=== PATIENT | female | born 1965 | race Caucasian/White ===

== ENCOUNTER 2017-11-14 11:53 | Emergency (ER) | payer OTHER ==
[~2017-11-14] VITALS: Ht 152.4 cm; Wt 66.4 kg
[2017-11-14 12:00] VITALS: Ht 152.4 cm; Wt 66.4 kg
[2017-11-14] MEDS ORDERED: VALIUM5 MG PO (12:02)
[2017-11-14] MEDS ORDERED: OMEPRAZOLE20 M1 PO (12:03)
[2017-11-14 12:36] LABS: BASOPHILS 0.5 % (0-2); EOSINOPHILS 0.6 % (0-7); HEMATOCRIT 43.4 % (36.0-48.0); HEMOGLOBIN 15.5 g/dL (12-16); IMMATURE GRANULOCYTES 0.2 % (0-5); LYMPHOCYTES 33.4 % (15-50); MCH 32.6 pg (26.0-34.0); MCHC 35.7 g/dL (31.0-37.0); MCV 91.2 fL (80.0-100.0); MEAN PLATELET VOLUME 9.4 fL (7.4-10.4); MONOCYTES 5.4 % (2-11); NEUTROPHILS 59.9 % (40-80); PLATELET COUNT 405 10x3/uL (130-400); RBC 4.76 10x6/uL (4.00-5.40); RDW 12.9 % (11.5-14.5); WBC 11.4 10x3/uL (4.8-10.8)
[2017-11-14 12:49] LABS: APPEARANCE CLEAR (CLEAR); BACTERIA FEW /hpf (NONE SEEN); BILIRUBIN NEGATIVE (NEGATIVE); COLOR YELLOW (YELLOW); EPITHELIAL CELLS OCC /hpf (0-5); GLUCOSE NEGATIVE (NEGATIVE); KETONE NEGATIVE (NEGATIVE); NITRITE NEGATIVE (NEGATIVE); PROTEIN NEGATIVE (NEGATIVE); RED CELLS - URINE 0-5 /hpf (0-5); UROBILINOGEN NORMAL (NORMAL)
[2017-11-14 13:03] LABS: ALKALINE PHOSPHATASE 86 U/L (46-116); ALT (SGPT) 24 U/L (10-68); AMYLASE - SERUM 54 U/L (25-115); BILIRUBIN - TOTAL 0.44 mg/dL (0.2-1.3); CALC OSMOLALITY 277 mosm/kg (275-300); CHLORIDE - SERUM 104 mmol/L (98-107); CREATININE - SERUM 0.6 mg/dL (0.6-1.3); GLUCOSE 85 mg/dL (74-106); LIPASE 160 U/L (73-393); POTASSIUM - SERUM 3.7 mmol/L (3.5-5.1); PROTEIN - SERUM 8.2 g/dL (6.4-8.2); SODIUM 141 mmol/L (136-145); UREA NITROGEN 7 mg/dL (7-18); eGFR NON AFRICAN AMERICAN > 90 mL/min (90-120)
[2017-11-14] MEDS ORDERED: FLORASTOR250 MG PO (17:12)
[2017-11-14] MEDS ORDERED: ZANTAC300 MG PO (17:14)
[2017-11-14] MEDS ORDERED: LEVSIN/ANASP0.125 MG PO (17:14)
[2017-11-14 17:24] VITALS: BP 109/66
== END 2017-11-14 17:26 | disposition home or self-care (01) ==
LOC: D.ER 11:53
PROVIDERS: Family Medicine
DX: R10.9 Unspecified abdominal pain (principal); R19.7 Diarrhea, unspecified; F17.200 Nicotine dependence, unspecified, uncomplicated

== ENCOUNTER → 2018-04-28 22:02 | Outpatient (CLI) | payer OTHER ==
[2017-11-14 12:00] VITALS: BMI 28.5
[~2018-04-28 22:02] MED LIST: FLORASTOR250 MG PO; LEVSIN/ANASP0.125 MG PO; OMEPRAZOLE20 M1 PO; VALIUM5 MG PO; ZANTAC300 MG PO
== END | disposition home or self-care (01) ==
LOC: D.MAMMO 13:45
DX: Z12.31 Encounter for screening mammogram for malignant neoplasm of breast (principal)

== ENCOUNTER 2018-05-24 22:29 | Inpatient (IN) | payer OTHER ==
[~2018-05-24] VITALS: Ht 152.4 cm; Wt 65.1 kg
[2018-05-24 23:01] LABS: BASOPHILS 0.2 % (0-2); EOSINOPHILS 0.6 % (0-7); HEMATOCRIT 43.5 % (36.0-48.0); HEMOGLOBIN 15.6 g/dL (12-16); IMMATURE GRANULOCYTES 0.4 % (0-5); LYMPHOCYTES 20.1 % (15-50); MCH 32.2 pg (26.0-34.0); MCHC 35.9 g/dL (31.0-37.0); MCV 89.7 fL (80.0-100.0); MEAN PLATELET VOLUME 9.6 fL (7.4-10.4); MONOCYTES 4.1 % (2-11); NEUTROPHILS 74.6 % (40-80); PLATELET COUNT 413 10x3/uL (130-400); RBC 4.85 10x6/uL (4.00-5.40); RDW 13.3 % (11.5-14.5); WBC 16.8 10x3/uL (4.8-10.8)
[2018-05-24 23:10] LABS: APPEARANCE HAZY (CLEAR); BILIRUBIN NEGATIVE (NEGATIVE); COLOR YELLOW (YELLOW); GLUCOSE NEGATIVE (NEGATIVE); KETONE NEGATIVE (NEGATIVE); NITRITE NEGATIVE (NEGATIVE); PROTEIN NEGATIVE (NEGATIVE); SPECIFIC GRAVITY 1.005 (1.005-1.020); UROBILINOGEN NORMAL (NORMAL)
[2018-05-24 23:24] LABS: ALBUMIN 3.7 g/dL (3.4-5.0); ALKALINE PHOSPHATASE 77 U/L (46-116); ALT (SGPT) 35 U/L (10-68); BILIRUBIN - TOTAL 0.36 mg/dL (0.2-1.3); CALC OSMOLALITY 291 mosm/kg (275-300); CALCIUM 9.5 mg/dL (8.5-10.1); CARBON DIOXIDE 30.1 mmol/L (21.0-32.0); CHLORIDE - SERUM 105 mmol/L (98-107); CREATININE - SERUM 0.7 mg/dL (0.6-1.3); GLUCOSE 110 mg/dL (74-106); POTASSIUM - SERUM 3.7 mmol/L (3.5-5.1); PROTEIN - SERUM 7.9 g/dL (6.4-8.2); SODIUM 146 mmol/L (136-145); UREA NITROGEN 13 mg/dL (7-18); eGFR NON AFRICAN AMERICAN > 90 mL/min (90-120)
[2018-05-24 23:28] LABS: AMYLASE - SERUM 83 U/L (25-115); LIPASE 333 U/L (73-393)
[2018-05-24 23:30] LABS: TROPONIN-I < 0.017 ng/mL (0.000-0.060)
[2018-05-24 23:37] VITALS: BP 114/71
--- NOTE | 2018-05-24 23:40 | NUR ---
pt laying in bed. warm blankets provided. no distress noted. respirations are even and unlabored. vss. iv patent and infusing with no signs of infiltration. family member at bedside. will continue to monitor.
--- NOTE | 2018-05-25 00:47 | NUR ---
PT RETURNED FROM CT AT THIS TIME.
[2018-05-25] MEDS ORDERED: PROTONIX40 MG PO (03:57)
--- NOTE | 2018-05-25 04:56 | NUR ---
RECIEVED REPORT FROM SAVANNA IN ER. ARRIVED TO FLOOR ON STRETCHER WITH . ALERT AND ORIENTED X4. IV TO LEFT AC. NS INFUSING AT 125ML/HR. NG TUBE ON INTERMEDIATE SUCTION. PT PULLED NG TUBE OUT AND WANTS TO WAIT FOR TO COME BACK IN FROM SMOKING BEFORE REINSERTION. PT STATED SHE GOT SICK AND FELT LIKE SHE COULD'NT BREATH SO SHE PULLED IT OUT.
[2018-05-25 05:22] VITALS: BP 117/72; BMI 30.7
[2018-05-25 05:28] VITALS: BP 117/72
--- NOTE | 2018-05-25 05:30 | NUR ---
NOTIFIED DR TAM WITH NEW ORDER FOR PHENEGRAN 25MG IM X1 AND REINSERT NG TUBE WITH INTERMEDIATE SUCTION. PT AND SPOUSE AWARE.
--- NOTE | 2018-05-25 07:30 | NUR ---
ASSESSMENT COMPLETED. IV TO LEFT AC WITH NS AT 125 CC/HR. NG TUBLE TO LEFT NARE TO LOW INTERMITTEN SUCTION. UP AB SPARKLE. NPO AT PRESENT TIME. ALERT AND ORIENTED. CALL LIGHT IN REACH
--- NOTE | 2018-05-25 08:02 | NUR ---
RESTING QUIETLY DENIES ANY NEEDS OR DISCOMFORT AT THIS TIME NAD NOTED
[2018-05-25 09:31] VITALS: BP 121/66
[2018-05-25 12:49] VITALS: BP 129/59
[2018-05-25 13:42] VITALS: Ht 152.4 cm; Wt 65.1 kg
--- NOTE | 2018-05-25 16:29 | NUR ---
SCD'S ON PER FRANCESCA/SENIOR C WEB DEVELOPER
[2018-05-25 17:06] VITALS: BP 128/76
--- NOTE | 2018-05-25 19:52 | NUR ---
RESUMED CARE OF PT, LYING IN BED RESPIRATIONS EVEN AND UNLABORED ON ROOM AIR. NGT TO Gerson HINTON LIS. 90 SR ON TELEMETRY. LEFT AC INFUSING NS @ 125. PLAN OF CARE DISCUSSED. SEE NURSE ASSESSMENT.
[2018-05-25 20:00] VITALS: BP 140/80
[2018-05-26] VITALS: BP 127/73
[2018-05-26 04:57] LABS: BASOPHILS 0.1 % (0-2); HEMATOCRIT 39.2 % (36.0-48.0); HEMOGLOBIN 13.3 g/dL (12-16); IMMATURE GRANULOCYTES 0.3 % (0-5); LYMPHOCYTES 20.8 % (15-50); MCHC 33.9 g/dL (31.0-37.0); MCV 91.4 fL (80.0-100.0); MONOCYTES 10.5 % (2-11); NEUTROPHILS 67.3 % (40-80); PLATELET COUNT 380 10x3/uL (130-400); RBC 4.29 10x6/uL (4.00-5.40); RDW 13.9 % (11.5-14.5); WBC 14.7 10x3/uL (4.8-10.8)
[2018-05-26 05:16] LABS: ALBUMIN 2.9 g/dL (3.4-5.0); ALKALINE PHOSPHATASE 57 U/L (46-116); BILIRUBIN - TOTAL 0.62 mg/dL (0.2-1.3); CALCIUM 7.8 mg/dL (8.5-10.1); CHLORIDE - SERUM 105 mmol/L (98-107); GLUCOSE 84 mg/dL (74-106); MAGNESIUM - SERUM 1.7 mg/dL (1.8-2.4); POTASSIUM - SERUM 3.3 mmol/L (3.5-5.1); PROTEIN - SERUM 6.4 g/dL (6.4-8.2); SODIUM 141 mmol/L (136-145)
[2018-05-26 05:20] VITALS: BP 131/67
[2018-05-26 05:20] LABS: ALT (SGPT) 21 U/L (10-68); CALC OSMOLALITY 277 mosm/kg (275-300); CREATININE - SERUM 0.5 mg/dL (0.6-1.3); UREA NITROGEN 8 mg/dL (7-18); eGFR NON AFRICAN AMERICAN > 90 mL/min (90-120)
--- NOTE | 2018-05-26 07:29 | NUR ---
RECEIVED PT IN BED AAOX4 RESP UNLABORED NG TUBE TO LT NARE PATENT TO LOW INTERMITTENT SUCTION DILAUDID 0.5 MG GIVEN SIVP FOR C/O OF HEAD AND THROAT PAIN 10/28
--- NOTE | 2018-05-26 07:59 | NUR ---
PAIN LEVEL 2
[2018-05-26 09:17] VITALS: BP 130/79
--- NOTE | 2018-05-26 11:24 | NUR ---
CALLED OVER TO XRAY REMOVED PT'S NG TUBE PER RADIOLOGIST INSERTEDNEW NG TUBE THRU LEFT NARE PLACEMENT CHECKED BY AUSCUTATION AND FLOUROSCOPY PT TOLERATED WELL
[2018-05-26 15:46] VITALS: BP 147/89
--- NOTE | 2018-05-26 19:30 | NUR ---
FLU SWAB DONE AND TAKEN TO LAB.
[2018-05-26 20:00] VITALS: BP 135/80
--- NOTE | 2018-05-26 21:36 | NUR ---
NGT TO LEFT NARE DISCONNECTED FROM SUCTION SO PT CAN GO TO BR.
[2018-05-26 22:37] LABS: APPEARANCE CLEAR (CLEAR); BILIRUBIN NEGATIVE (NEGATIVE); COLOR YELLOW (YELLOW); GLUCOSE NEGATIVE (NEGATIVE); KETONE LARGE mg/dL (NEGATIVE); NITRITE NEGATIVE (NEGATIVE); PROTEIN NEGATIVE (NEGATIVE); UROBILINOGEN NORMAL (NORMAL)
[2018-05-26 22:39] LABS: RED CELLS - URINE 0-5 /hpf (0-5); WHITE CELLS - URINE 0-5 /hpf (0-5)
[2018-05-26 22:40] LABS: BACTERIA FEW /hpf (NONE SEEN); EPITHELIAL CELLS 0-5 /hpf (0-5)
[2018-05-27] VITALS: BP 129/74
--- NOTE | 2018-05-27 03:43 | NUR ---
PT AWAKE, WATCHING TV. FAMILY AT BEDSIDE. PT HAS NGT WITH LIS, NS INFUSING ORDERED. PT HAS NO S/S OF DISTRESS. BEDLOW AND CALL LIGHT IN REACH. PT DENIES ANY NEEDS. WILL CPOC
[2018-05-27 04:00] VITALS: BP 132/84
--- NOTE | 2018-05-27 04:33 | NUR ---
RESTING WITH EYES CLOSED, RESPERATIONS EVEN, NO S.S DISTRESS NOTED.
[2018-05-27 06:10] LABS: BASOPHILS 0.2 % (0-2); EOSINOPHILS 0.8 % (0-7); HEMATOCRIT 37.9 % (36.0-48.0); HEMOGLOBIN 13.1 g/dL (12-16); IMMATURE GRANULOCYTES 0.3 % (0-5); LYMPHOCYTES 21.1 % (15-50); MCH 31.4 pg (26.0-34.0); MCHC 34.6 g/dL (31.0-37.0); MCV 90.9 fL (80.0-100.0); MEAN PLATELET VOLUME 9.7 fL (7.4-10.4); MONOCYTES 10.7 % (2-11); NEUTROPHILS 66.9 % (40-80); PLATELET COUNT 362 10x3/uL (130-400); RBC 4.17 10x6/uL (4.00-5.40); RDW 13.5 % (11.5-14.5); WBC 14.3 10x3/uL (4.8-10.8)
[2018-05-27 06:35] LABS: ALBUMIN 2.8 g/dL (3.4-5.0); ALKALINE PHOSPHATASE 65 U/L (46-116); ALT (SGPT) 20 U/L (10-68); BILIRUBIN - TOTAL 0.62 mg/dL (0.2-1.3); CALC OSMOLALITY 274 mosm/kg (275-300); CALCIUM 7.9 mg/dL (8.5-10.1); CARBON DIOXIDE 19.7 mmol/L (21.0-32.0); CHLORIDE - SERUM 104 mmol/L (98-107); CREATININE - SERUM 0.5 mg/dL (0.6-1.3); MAGNESIUM - SERUM 1.8 mg/dL (1.8-2.4); POTASSIUM - SERUM 3.2 mmol/L (3.5-5.1); PROTEIN - SERUM 6.6 g/dL (6.4-8.2); SODIUM 139 mmol/L (136-145); UREA NITROGEN 10 mg/dL (7-18); eGFR NON AFRICAN AMERICAN > 90 mL/min (90-120)
[2018-05-27 06:40] LABS: GLUCOSE 62 mg/dL (74-106)
--- NOTE | 2018-05-27 07:10 | NUR ---
REPORT RECIEVED FROM PUMP TECHNICIAN. PATIENT LAYING IN BED ON BACK AWAKE AND ALERT. ORIENTED X 4. PATIENT DENIES ANY NEEDS OR PAIN. WILL CONTINUE WITH PLAN OF CARE. SR UP X 2 BED IN LOW POSITION AND CALL LIGHT IN REACH.
[2018-05-27 08:04] VITALS: BP 119/66
--- NOTE | 2018-05-27 09:00 | NUR ---
PATIENT ASSESSMENT COMPLETED. WILL CONTINUE WITH PLAN OF CARE.
--- NOTE | 2018-05-27 10:40 | NUR ---
ORDERS RECIEVED FOR NG TUBE REMOVAL. NG TUBE REMOVED EASILY AND PATIENT TOLERATED WELL AND STATES VERY HAPPY TP HAVE REMOVED. GAVE PATIENT WATER AND PATIENT SWALLOWED WITHOUT DIFFICULTY. WILL CONTINUE TO MONITOR.
[2018-05-27 12:31] VITALS: BP 138/87
--- NOTE | 2018-05-27 13:06 | NUR ---
PATIENT UNCHAGED. CURRENTLY RESTING QUIETLY IN BED. WILL CONTINUE TO MONITOR.
[2018-05-27 15:28] VITALS: BP 139/82
--- NOTE | 2018-05-27 19:51 | NUR ---
RESUMING PATIENT CARE. PATIENT IS ALERT AND ORIENTED. PATIENT SITTING UP IN BED. RESPIRATIONS EVEN AND UNLABORED. NO S/S OF DISTRESS. NO C/O PAIN. PATIENT DENIES NEEDS AT THIS TIME. PATIENT BOARD UPDATED. CALL LIGHT WITHIN REACH. FAMILY AT BEDSIDE. WILL CPOC
[2018-05-27 20:00] VITALS: BP 105/66
[2018-05-28] VITALS: BP 136/83
[2018-05-28 04:00] VITALS: BP 144/83
[2018-05-28 06:42] LABS: BASOPHILS 0.2 % (0-2); EOSINOPHILS 1.3 % (0-7); HEMATOCRIT 34.8 % (36.0-48.0); HEMOGLOBIN 12.5 g/dL (12-16); IMMATURE GRANULOCYTES 0.4 % (0-5); MCH 31.6 pg (26.0-34.0); MCHC 35.9 g/dL (31.0-37.0); MEAN PLATELET VOLUME 9.3 fL (7.4-10.4); NEUTROPHILS 66.1 % (40-80); PLATELET COUNT 322 10x3/uL (130-400); RBC 3.96 10x6/uL (4.00-5.40); RDW 13.1 % (11.5-14.5); WBC 16.3 10x3/uL (4.8-10.8)
[2018-05-28 06:44] LABS: MCV 87.9 fL (80.0-100.0)
[2018-05-28 07:08] LABS: ALBUMIN 2.5 g/dL (3.4-5.0); ALKALINE PHOSPHATASE 60 U/L (46-116); ALT (SGPT) 15 U/L (10-68); BILIRUBIN - TOTAL 0.82 mg/dL (0.2-1.3); CALCIUM 7.8 mg/dL (8.5-10.1); CARBON DIOXIDE 23.1 mmol/L (21.0-32.0); CHLORIDE - SERUM 106 mmol/L (98-107); CREATININE - SERUM 0.4 mg/dL (0.6-1.3); GLUCOSE 91 mg/dL (74-106); MAGNESIUM - SERUM 1.6 mg/dL (1.8-2.4); PROTEIN - SERUM 6.2 g/dL (6.4-8.2); SODIUM 141 mmol/L (136-145); eGFR NON AFRICAN AMERICAN > 90 mL/min (90-120)
--- NOTE | 2018-05-28 07:10 | NUR ---
REPORT RECEIVED FROM OIL EXTRACTOR. PATIENT IN LAYING IN BED ON RT SIDE WITH EYES CLOSED AND BREATHING EVENLY. FAMILY MEMBER SLEEPING IN BEDSIDE CHAIR. WILL CONTINUE WITH PLAN OF CARE.
[2018-05-28 07:21] LABS: CALC OSMOLALITY 277 mosm/kg (275-300); UREA NITROGEN 4 mg/dL (7-18)
[2018-05-28 07:22] LABS: POTASSIUM - SERUM 2.8 mmol/L (3.5-5.1)
[2018-05-28 09:45] VITALS: BP 113/71
[2018-05-28 11:00] VITALS: BP 114/73
--- NOTE | 2018-05-28 12:03 | NUR ---
PATIENT REFUSED SCD'S.
--- NOTE | 2018-05-28 13:00 | NUR ---
PATIENT SITTING UP IN BED WATCHING TV. ENCOURAGED PATIENT TO DEEP BREATHE, SIT ON SIDE OFF BED, WALK IN ROOM AND WALK ON UNIT. PATIENT STATES THAT SHE DOES NOT FEEL LIKE IT. DISCUSSED BENEFITS WITH PATIENT BUT TO NO AVAIL. PATIENT DENIES ANY NEEDS OR PAIN. WILL CONTINUE TO MONITOR.
[2018-05-28 15:00] VITALS: BP 98/53
--- NOTE | 2018-05-28 15:30 | NUR ---
PATIENT COMPLAINS PAIN AND BURNING AT IV SITE. IV INFILLTRATED. IV RE-SITED AT INNER RT WRIST WITH 20 G. PATIENT TOLERATED WELL. WILL CONTINUE TO MONITOR.
--- NOTE | 2018-05-28 16:39 | MORECARE ---
CASE MANAGEMENT DISCHARGE SUMMARY PATIENT: ODETTE ARANA UNIT: [id number] ADM DATE: 05/25/18 AGE: 52 : 67 SEX: F ROOM/BED: D.1366 AUTHOR: HAYES,DOC PHYSICIAN: REFERRING PHYSICIAN: ANNA TAM MD DATE OF SERVICE: 05/28/18 Discharge Plan Patient Name: ODETTE ARANA Facility: [facility]:[place] : 1965 Planned Disposition: Home Anticipated Discharge Date: 05/29/18 Discharge Date: Expected LOS: 4 Initial Reviewer: [email or web address] Initial Review Date: 05/25/2018 Generated: 05/28/18 5:38 pm Comments DCP- Discharge Planning Updated by [email or web address]: Herbert Hester on 05/28/18 3:[address] Patient Name: ODETTE ARANA Admission Status: ER Accout number: [id number] Admission Date: 05-25-2018 : 1965 Admission Diagnosis:UNSPECIFIED ABDOMINAL PAIN Attending: ANNA TAM Current LOS: 3 Anticipated DC Date: 05-29-2018 Planned Disposition: Home Primary Insurance: [facility] Discharge Planning Comments: CM MET WITH PT IN ROOM TO DISCUSS DISCHARGE PLANNING AND NEEDS. PT REPORTS LIVING AT HOME INDEPENDENTLY WITH SPOUSE. PT HAS NO MEDICAL EQUIPMENT AND NO OUTSIDE SERVICES ASSISTING IN THE HOME. CM DISCUSSED AVAILABILITY OF HOME HEALTH, REHAB SERVICES AND MEDICAL EQUIPMENT. PT DENIES DISCHARGE NEEDS, REPORTS HER SPOUSE WILL PICK HER UP FOR DISCHARGE HOME. PT PLANS TO DISCHARGE HOME WITH SPOUSE, DENIES DISCHARGE NEEDS AT THIS TIME. CM TO FOLLOW AND ASSIST IF NEEDED. Iron Miner: Herbert Hester DCPIA - Discharge Planning Initial Assessment Updated by [email or web address]: Herbert Hester on 05/28/18 4:36 pm * Is the patient Alert and Oriented? Yes * How many steps to enter\exit or inside your home? NONE * PCP DR. TANNER * Pharmacy [facility] * Preadmission Environment Home with Family * ADLs Independent * Equipment None * Other Equipment NO MEDICAL EQUIPMENT PROVIDER PREFERENCE * List name and contact numbers for known caregivers / representatives who currently or will assist patient after discharge: PAMELA ARANA, SPOUSE, * Verbal permission to speak to the caregivers and representatives has been obtained from the patient. N/A * Community resources currently utilized None * Please name any agencies selected above. NONE * Additional services required to return to the preadmission environment? No * Can the patient safely return to the preadmission environment? Yes * Has this patient been hospitalized within the prior 30 days at any hospital? No Patient Name: ODETTE ARANA Page [phone] at 1639 All edits/amendments must be made on the electronic document DICTATION DATE: 05/28/181637 INTERNET MERCHANT: NAMAN 05/28/188 RPT#: [id number] DC DATE: STATUS: ADM IN [facility] [address] [place] [address] END OF REPORT
[2018-05-28 20:00] VITALS: BP 127/75
--- NOTE | 2018-05-28 20:00 | NUR ---
INITIAL ASSESSMENT COMPLETED - PT C/O BURNING SENSATION AT IV SITE. IV IN R WRIST. C/D/I. DEMONSTRATED TO PT IV BLOOD RETURN AND PATENCY. REDUCED NS FLOW RATE TO 85 ML/HR PER PT REQUEST. PT STATES IT FEELS BETTER AND IS "MORE COMFORTABLE NOW THAT I KNOW IT'S IN THE RIGHT PLACE AND YOU'VE SHOWN ME." WCTM AND FOLLOW POC. RR EVEN AND UL. CL IN REACH, SR UP X2, BED IN LOWEST POSITION, SPOUSE AT BEDSIDE.
[2018-05-29] VITALS: BP 116/76
[2018-05-29 04:00] VITALS: BP 136/71
--- NOTE | 2018-05-29 04:00 | NUR ---
TO PT ROOM VIA CALL LIGHT - REQUEST FOR MORE TYLENOL, PAIN 5/10. ADMINISTERED TYLENOL. NO OTHER NEEDS NOTED AT THIS TIME. RR EVEN AND UL, NO S/S OF DISTRESS. CL IN REACH, SR UP X2, AT BEDSIDE.
[2018-05-29 06:16] LABS: BASOPHILS 0.4 % (0-2); EOSINOPHILS 3.6 % (0-7); HEMOGLOBIN 11.9 g/dL (12-16); IMMATURE GRANULOCYTES 0.2 % (0-5); LYMPHOCYTES 35.2 % (15-50); MCH 31.2 pg (26.0-34.0); MEAN PLATELET VOLUME 10.1 fL (7.4-10.4); MONOCYTES 8.9 % (2-11); NEUTROPHILS 51.7 % (40-80); PLATELET COUNT 347 10x3/uL (130-400); RBC 3.82 10x6/uL (4.00-5.40); RDW 13.3 % (11.5-14.5)
[2018-05-29 06:20] LABS: WBC 9.8 10x3/uL (4.8-10.8)
[2018-05-29 06:34] LABS: ALBUMIN 2.5 g/dL (3.4-5.0); ALKALINE PHOSPHATASE 58 U/L (46-116); ALT (SGPT) 17 U/L (10-68); BILIRUBIN - TOTAL 0.67 mg/dL (0.2-1.3); CALC OSMOLALITY 286 mosm/kg (275-300); CALCIUM 8.1 mg/dL (8.5-10.1); CARBON DIOXIDE 26.2 mmol/L (21.0-32.0); CHLORIDE - SERUM 109 mmol/L (98-107); CREATININE - SERUM 0.5 mg/dL (0.6-1.3); GLUCOSE 85 mg/dL (74-106); MAGNESIUM - SERUM 1.8 mg/dL (1.8-2.4); PROTEIN - SERUM 6.3 g/dL (6.4-8.2); SODIUM 146 mmol/L (136-145); UREA NITROGEN 3 mg/dL (7-18); eGFR NON AFRICAN AMERICAN > 90 mL/min (90-120)
--- NOTE | 2018-05-29 07:37 | NUR ---
REPORT RECEIVED. WILL CONTINUE WITH POC. PT CURRENTLY LYING SEMI FOWLERS. CALL LIGHT W/I REACH. PT IS AAO AND UP AD SPARKLE. RR EVEN AND UNLABORED ON RA.NS INFUSING @95ML/HR VIA R.WRIST PIV. PT DENIES ANY NEEDS AT THIS TIME. WILL CTM.
[2018-05-29 08:15] VITALS: BP 145/89
--- NOTE | 2018-05-29 09:18 | NUR ---
RESTS IN BED WITH CALL LIGHT IN REACH. IV PATENT. WILL CONT. PLAN OF CARE.
--- NOTE | 2018-05-29 09:58 | NUR ---
AM MEDICATIONS ADMINISTERED. 40MEQ POTASSIUM ADMINISTERED PER PROTOCOL AND REDRAW ORDERED FOR 1230
[2018-05-29 11:41] VITALS: BP 124/84
--- NOTE | 2018-05-29 12:09 | NUR ---
PT STATES THAT THE AZITHROMYCIN ANTIBIOTIC IS HURTING HER ARM WHILE INFUSING. STOPPED INFUSION. FLUSHED WITH 10CC TO CONFIRM PATENCY AND IT WAS INTFACT PATENT. NO S/S/ OF INFILTRATION OR PHLEBITIS. RESTARTED THE INFUSION @100ML/HR. WILL CTM.
--- NOTE | 2018-05-29 12:33 | NUR ---
Nutrition Follow Up: Chart reviewed. Pt is tolerating full liquid diet. Wt stable BM: 05/26/18 Meds and labs reviewed Rec continue advancing AVELINO as medically feasible. RD following.
[2018-05-29 20:00] VITALS: BP 99/56
[2018-05-30 00:27] VITALS: BP 104/54
[2018-05-30 05:02] VITALS: BP 131/78
[2018-05-30 05:25] LABS: BASOPHILS 0.6 % (0-2); EOSINOPHILS 4.6 % (0-7); HEMATOCRIT 33.1 % (36.0-48.0); HEMOGLOBIN 11.9 g/dL (12-16); IMMATURE GRANULOCYTES 0.1 % (0-5); LYMPHOCYTES 45.9 % (15-50); MCH 31.9 pg (26.0-34.0); MCV 88.7 fL (80.0-100.0); MEAN PLATELET VOLUME 9.3 fL (7.4-10.4); MONOCYTES 8.2 % (2-11); NEUTROPHILS 40.6 % (40-80); PLATELET COUNT 355 10x3/uL (130-400); RBC 3.73 10x6/uL (4.00-5.40); RDW 13.4 % (11.5-14.5); WBC 8.8 10x3/uL (4.8-10.8)
[2018-05-30 05:38] LABS: ALBUMIN 2.5 g/dL (3.4-5.0); ALKALINE PHOSPHATASE 60 U/L (46-116); BILIRUBIN - TOTAL 0.32 mg/dL (0.2-1.3); CALCIUM 8.4 mg/dL (8.5-10.1); CARBON DIOXIDE 27.4 mmol/L (21.0-32.0); CHLORIDE - SERUM 109 mmol/L (98-107); CREATININE - SERUM 0.4 mg/dL (0.6-1.3); GLUCOSE 94 mg/dL (74-106); MAGNESIUM - SERUM 1.7 mg/dL (1.8-2.4); POTASSIUM - SERUM 3.6 mmol/L (3.5-5.1); PROTEIN - SERUM 6.1 g/dL (6.4-8.2); SODIUM 146 mmol/L (136-145); eGFR NON AFRICAN AMERICAN > 90 mL/min (90-120)
[2018-05-30 05:39] LABS: ALT (SGPT) 34 U/L (10-68); CALC OSMOLALITY 287 mosm/kg (275-300); UREA NITROGEN 5 mg/dL (7-18)
--- NOTE | 2018-05-30 13:34 | NUR ---
RESTING QUIETLY NAD NOTED
[2018-05-30] MEDS ORDERED: FLORAJEN3 CAPS460 MG PO (14:20)
[2018-05-30] MEDS ORDERED: Nicoderm [PBKC] TRANSDERM (14:21)
[2018-05-30] MEDS ORDERED: OMNICEF300 MG PO (14:21)
[2018-05-30] MEDS ORDERED: ZOFRAN ODT4 MG/UDTAB PO (14:22)
--- NOTE | 2018-05-30 16:40 | NUR ---
SPOKE WITH ALEX THE PHARMACIST AT [facility] AND CALLED IN NICODER 14MG PATCH, #14 WITH NO REFILLS.
--- NOTE | 2018-05-30 17:40 | NUR ---
PT DISCHARGED. IV DCD WITH TIP INTACT. INSTRUCTIONS GIVEN TO PT AND FAMILY. TO CAR PER WHEELCHAIR.
--- NOTE | 2018-06-01 10:37 | MORECARE ---
CASE MANAGEMENT DISCHARGE SUMMARY PATIENT: ODETTE ARANA UNIT: [id number] ADM DATE: 05/25/18 AGE: 52 : 67 SEX: F ROOM/BED: D.9356 AUTHOR: HAYES,DOC PHYSICIAN: REFERRING PHYSICIAN: ANNA TAM MD DATE OF SERVICE: 06/01/18 Discharge Plan Patient Name: ODETTE ARANA Facility: [facility]:[place] : 1965 Planned Disposition: Home Anticipated Discharge Date: 05/30/18 Discharge Date: 05/30/2018 Expected LOS: 5 Initial Reviewer: [email or web address] Initial Review Date: 05/25/2018 Generated: 06/01/18 11:36 am Comments DCP- Discharge Planning Updated by [email or web address]: Herbert Hester on 05/28/18 3:[address] Patient Name: ODETTE ARANA Admission Status: ER Accout number: [id number] Admission Date: 05-25-2018 : 1965 Admission Diagnosis:UNSPECIFIED ABDOMINAL PAIN Attending: ANNA TAM Current LOS: 3 Anticipated DC Date: 05-29-2018 Planned Disposition: Home Primary Insurance: [facility] Discharge Planning Comments: CM MET WITH PT IN ROOM TO DISCUSS DISCHARGE PLANNING AND NEEDS. PT REPORTS LIVING AT HOME INDEPENDENTLY WITH SPOUSE. PT HAS NO MEDICAL EQUIPMENT AND NO OUTSIDE SERVICES ASSISTING IN THE HOME. CM DISCUSSED AVAILABILITY OF HOME HEALTH, REHAB SERVICES AND MEDICAL EQUIPMENT. PT DENIES DISCHARGE NEEDS, REPORTS HER SPOUSE WILL PICK HER UP FOR DISCHARGE HOME. PT PLANS TO DISCHARGE HOME WITH SPOUSE, DENIES DISCHARGE NEEDS AT THIS TIME. CM TO FOLLOW AND ASSIST IF NEEDED. Cushion Builder: Herbert Hester DCPIA - Discharge Planning Initial Assessment Updated by [email or web address]: Herbert Hester on 05/28/18 4:36 pm * Is the patient Alert and Oriented? Yes * How many steps to enter\exit or inside your home? NONE * PCP DR. TANNER * Pharmacy [facility] * Preadmission Environment Home with Family * ADLs Independent * Equipment None * Other Equipment NO MEDICAL EQUIPMENT PROVIDER PREFERENCE * List name and contact numbers for known caregivers / representatives who currently or will assist patient after discharge: PAMELA ARANA, SPOUSE, * Verbal permission to speak to the caregivers and representatives has been obtained from the patient. N/A * Community resources currently utilized None * Please name any agencies selected above. NONE * Additional services required to return to the preadmission environment? No * Can the patient safely return to the preadmission environment? Yes * Has this patient been hospitalized within the prior 30 days at any hospital? No Last DP export: 05/28/18 3:38 pm Patient Name: ODETTE ARANA Page [id number] at 1037 All edits/amendments must be made on the electronic document DICTATION DATE: 06/01/18 1036 OFFICE SERVICES CLERK: NAMAN 06/01/18 1036 RPT#: [id number] DC DATE:05/30/18 STATUS: DIS IN [facility] [address] [place] [address] END OF REPORT
== END 2018-05-30 17:42 | disposition home or self-care (01) | DRG 388 ==
LOC: D.ER 22:29 → D.M2 05-25 01:28 → D.EDHOLD 05-25 01:28 → D.M2 05-25 01:59
PROVIDERS: Family Medicine; ADMIT Internal Medicine Nephrology
PROC: 0D9670Z Drainage of Stomach with Drainage Device, Via Natural or Artificial Opening (ICD-10-PCS; principal; 2018-05-25)
DX: K56.609 Unspecified intestinal obstruction, unspecified as to partial versus complete obstruction (principal); J18.9 Pneumonia, unspecified organism; F17.213 Nicotine dependence, cigarettes, with withdrawal; F41.9 Anxiety disorder, unspecified; K21.9 Gastro-esophageal reflux disease without esophagitis

== ENCOUNTER → 2018-07-09 16:33 | Outpatient (CLI) | payer OTHER ==
[2018-05-25 13:42] VITALS: BMI 30.6
[~2018-07-09 16:33] MED LIST changes: +FLORAJEN3 CAPS460 MG PO; +Nicoderm [PBKC] TRANSDERM; +OMNICEF300 MG PO; +PROTONIX40 MG PO; +ZOFRAN ODT4 MG/UDTAB PO
== END | disposition home or self-care (01) ==
LOC: D.MAMMO 06-23 13:00
PROVIDERS: ATTEND Family Medicine
DX: R92.8 Other abnormal and inconclusive findings on diagnostic imaging of breast (principal)

== ENCOUNTER 2018-11-29 10:32 | Emergency (ER) | payer OTHER ==
[~2018-11-29] VITALS: Ht 152.4 cm; Wt 71.4 kg
[2018-11-29 10:34] VITALS: Ht 152.4 cm; Wt 71.4 kg
[2018-11-29] MEDS ORDERED: ZANTAC300 MG PO (10:36)
[2018-11-29] MEDS ORDERED: MYLANTA / MAALO30 ML PO (10:36)
[2018-11-29] MEDS ORDERED: OMEPRAZOLE40 MG PO (10:36)
[2018-11-29 11:09] LABS: BASOPHILS 0.3 % (0-2); EOSINOPHILS 0 % (0-7); HEMATOCRIT 39.2 % (36.0-48.0); HEMOGLOBIN 14.2 g/dL (12-16); IMMATURE GRANULOCYTES 0.3 % (0-5); MCH 31.7 pg (26.0-34.0); MCHC 36.2 g/dL (31.0-37.0); MCV 87.5 fL (80.0-100.0); MEAN PLATELET VOLUME 9.4 fL (7.4-10.4); MONOCYTES 5.4 % (2-11); PLATELET COUNT 397 10x3/uL (130-400); RBC 4.48 10x6/uL (4.00-5.40); RDW 13.2 % (11.5-14.5); WBC 9.5 10x3/uL (4.8-10.8)
[2018-11-29 11:24] LABS: ALBUMIN 3.6 g/dL (3.4-5.0); ALKALINE PHOSPHATASE 92 U/L (46-116); ALT (SGPT) 29 U/L (10-68); BILIRUBIN - TOTAL 0.34 mg/dL (0.2-1.3); CALC OSMOLALITY 277 mosm/kg (275-300); CALCIUM 8.9 mg/dL (8.5-10.1); CARBON DIOXIDE 27.1 mmol/L (21.0-32.0); CHLORIDE - SERUM 105 mmol/L (98-107); CREATININE - SERUM 0.6 mg/dL (0.6-1.3); GLUCOSE 94 mg/dL (74-106); POTASSIUM - SERUM 3.4 mmol/L (3.5-5.1); PROTEIN - SERUM 7.3 g/dL (6.4-8.2); SODIUM 140 mmol/L (136-145); UREA NITROGEN 9 mg/dL (7-18); eGFR NON AFRICAN AMERICAN > 90 mL/min (90-120)
[2018-11-29] MEDS ORDERED: LEVOFLOXACIN500 MG PO (12:37)
[2018-11-29] MEDS ORDERED: HYDROCODONE-A1 UDTA2 PO (12:37)
[2018-11-29 13:07] VITALS: BP 119/84
== END 2018-11-29 13:09 | disposition home or self-care (01) ==
LOC: D.ER 10:32
PROVIDERS: Emergency Medicine
DX: R10.11 Right upper quadrant pain (principal); K52.9 Noninfective gastroenteritis and colitis, unspecified; E87.6 Hypokalemia

== ENCOUNTER 2019-02-25 07:13 | Emergency (ER) | payer OTHER ==
[~2019-02-25] VITALS: Ht 152.4 cm; Wt 71.4 kg
[~2019-02-25 07:13] MED LIST changes: +HYDROCODONE-A1 UDTA2 PO; +LEVOFLOXACIN500 MG PO; +MYLANTA / MAALO30 ML PO; +OMEPRAZOLE40 MG PO
[2019-02-25 07:17] VITALS: Ht 152.4 cm; Wt 71.4 kg
[2019-02-25] MEDS ORDERED: FLUTICASONE PRO16 GM NASAL (07:23)
[2019-02-25] MEDS ORDERED: AMOXIL250 M1 PO (07:24)
[2019-02-25] MEDS ORDERED: CLARITIN 10 MG10 MG PO (07:24)
[2019-02-25] MEDS ORDERED: PEPCID AC20 MG PO (07:24)
[2019-02-25] MEDS ORDERED: ANTIVERT12.5 MG PO (08:05)
[2019-02-25] MEDS ORDERED: CORTISPORIN OTI10 M1 LEFT EAR (08:05)
[2019-02-25 08:18] VITALS: BP 131/88
== END 2019-02-25 08:18 | disposition home or self-care (01) ==
LOC: D.ER 07:13
DX: H93.13 Tinnitus, bilateral (principal); H92.03 Otalgia, bilateral

== ENCOUNTER 2019-12-15 18:18 | Emergency (ER) | payer OTHER ==
[~2019-12-15] VITALS: Ht 152.4 cm; Wt 73.6 kg
[~2019-12-15 18:18] MED LIST changes: +AMOXIL250 M1 PO; +ANTIVERT12.5 MG PO; +CLARITIN 10 MG10 MG PO; +CORTISPORIN OTI10 M1 LEFT EAR; +FLUTICASONE PRO16 GM NASAL; +PEPCID AC20 MG PO
[2019-12-15 18:22] VITALS: Ht 152.4 cm; Wt 73.6 kg
[2019-12-15 19:47] LABS: BASOPHILS 0.3 % (0-2); EOSINOPHILS 0.4 % (0-7); HEMATOCRIT 40.8 % (36.0-48.0); HEMOGLOBIN 13.9 g/dL (12-16); IMMATURE GRANULOCYTES 0.1 % (0-5); LYMPHOCYTES 50.8 % (15-50); MCH 30.7 pg (26.0-34.0); MCHC 34.1 g/dL (31.0-37.0); MCV 90.1 fL (80.0-100.0); MEAN PLATELET VOLUME 9.6 fL (7.4-10.4); MONOCYTES 8.8 % (2-11); NEUTROPHILS 39.6 % (40-80); PLATELET COUNT 434 10x3/uL (130-400); RBC 4.53 10x6/uL (4.00-5.40); RDW 13.7 % (11.5-14.5); WBC 6.8 10x3/uL (4.8-10.8)
[2019-12-15 19:56] LABS: BILIRUBIN NEGATIVE (NEGATIVE); KETONE NEGATIVE (NEGATIVE); NITRITE NEGATIVE (NEGATIVE); RED CELLS - URINE 0-5 /hpf (0-5); UROBILINOGEN NORMAL (NORMAL); WHITE CELLS - URINE OCC /hpf (NEGATIVE)
[2019-12-15 19:57] LABS: EPITHELIAL CELLS 0-5 /hpf (0-5)
[2019-12-15 20:01] LABS: CALC OSMOLALITY 278 mosm/kg (275-300); CALCIUM 8.8 mg/dL (8.5-10.1); CARBON DIOXIDE 31.2 mmol/L (21.0-32.0); CHLORIDE - SERUM 103 mmol/L (98-107); CREATININE - SERUM 0.9 mg/dL (0.6-1.3); GLUCOSE 104 mg/dL (74-106); POTASSIUM - SERUM 3.8 mmol/L (3.5-5.1); SODIUM 139 mmol/L (136-145); UREA NITROGEN 16 mg/dL (7-18); eGFR NON AFRICAN AMERICAN 69 mL/min (90-120)
[2019-12-15 20:11] LABS: ALBUMIN 3.5 g/dL (3.4-5.0); ALKALINE PHOSPHATASE 98 U/L (30-120); ALT (SGPT) 50 U/L (10-68); AMYLASE - SERUM 65 U/L (25-115); BILIRUBIN - TOTAL 0.28 mg/dL (0.2-1.3); LIPASE 181 U/L (73-393); PROTEIN - SERUM 7.5 g/dL (6.4-8.2)
[2019-12-15 20:22] LABS: TROPONIN-I < 0.017 ng/mL (0.000-0.060)
[2019-12-15] MEDS ORDERED: ULTRAM50 MG PO (21:29)
[2019-12-15 22:03] VITALS: BP 113/73
== END 2019-12-15 22:04 | disposition home or self-care (01) ==
LOC: D.ER 18:18
DX: K44.9 Diaphragmatic hernia without obstruction or gangrene (principal); R10.9 Unspecified abdominal pain; K21.9 Gastro-esophageal reflux disease without esophagitis

== ENCOUNTER → 2020-01-20 08:19 | Outpatient (CLI) | payer OTHER ==
[2019-12-15 18:22] VITALS: BMI 31.7
[~2020-01-20 08:19] MED LIST changes: +ULTRAM50 MG PO
[2020-01-20 08:56] LABS: BASOPHILS 0.3 % (0-2); EOSINOPHILS 0.8 % (0-7); HEMATOCRIT 38.9 % (36.0-48.0); HEMOGLOBIN 13.3 g/dL (12-16); IMMATURE GRANULOCYTES 0.1 % (0-5); LYMPHOCYTES 36.1 % (15-50); MCH 30.8 pg (26.0-34.0); MCHC 34.2 g/dL (31.0-37.0); MEAN PLATELET VOLUME 9.3 fL (7.4-10.4); MONOCYTES 5.7 % (2-11); PLATELET COUNT 435 10x3/uL (130-400); RBC 4.32 10x6/uL (4.00-5.40); RDW 13.6 % (11.5-14.5); WBC 8.9 10x3/uL (4.8-10.8)
[2020-01-20 09:08] LABS: ALBUMIN 3.7 g/dL (3.4-5.0); ALKALINE PHOSPHATASE 105 U/L (30-120); ALT (SGPT) 29 U/L (10-68); BILIRUBIN - TOTAL 0.38 mg/dL (0.2-1.3); CALC OSMOLALITY 276 mosm/kg (275-300); CALCIUM 8.8 mg/dL (8.5-10.1); CARBON DIOXIDE 30.6 mmol/L (21.0-32.0); CHLORIDE - SERUM 103 mmol/L (98-107); CREATININE - SERUM 0.7 mg/dL (0.6-1.3); GLUCOSE 90 mg/dL (74-106); LIPASE 144 U/L (73-393); POTASSIUM - SERUM 3.6 mmol/L (3.5-5.1); PROTEIN - SERUM 7.8 g/dL (6.4-8.2); SODIUM 139 mmol/L (136-145); UREA NITROGEN 11 mg/dL (7-18); eGFR NON AFRICAN AMERICAN > 90 mL/min (90-120)
== END | disposition home or self-care (01) ==
LOC: D.US 08:19
PROVIDERS: ATTEND Nurse Practitioner
DX: R10.9 Unspecified abdominal pain (principal); R11.2 Nausea with vomiting, unspecified

== ENCOUNTER 2020-01-20 17:13 | Emergency (ER) | payer OTHER ==
[~2020-01-20] VITALS: Ht 152.4 cm; Wt 72.7 kg
[2020-01-20 17:37] VITALS: BP 109/71; Ht 152.4 cm; Wt 72.7 kg
[2020-01-20 18:28] LABS: BASOPHILS 0.4 % (0-2); EOSINOPHILS 1.8 % (0-7); HEMATOCRIT 39.2 % (36.0-48.0); HEMOGLOBIN 13.2 g/dL (12-16); IMMATURE GRANULOCYTES 0.2 % (0-5); LYMPHOCYTES 47.4 % (15-50); MCH 30.4 pg (26.0-34.0); MCHC 33.7 g/dL (31.0-37.0); MCV 90.3 fL (80.0-100.0); MEAN PLATELET VOLUME 9.3 fL (7.4-10.4); MONOCYTES 5.9 % (2-11); NEUTROPHILS 44.3 % (40-80); PLATELET COUNT 414 10x3/uL (130-400); RBC 4.34 10x6/uL (4.00-5.40); RDW 13.6 % (11.5-14.5); WBC 10.5 10x3/uL (4.8-10.8)
[2020-01-20 18:38] LABS: CALC OSMOLALITY 272 mosm/kg (275-300); CALCIUM 8.5 mg/dL (8.5-10.1); CARBON DIOXIDE 28.6 mmol/L (21.0-32.0); CHLORIDE - SERUM 103 mmol/L (98-107); CREATININE - SERUM 0.7 mg/dL (0.6-1.3); GLUCOSE 107 mg/dL (74-106); POTASSIUM - SERUM 3.4 mmol/L (3.5-5.1); SODIUM 137 mmol/L (136-145); UREA NITROGEN 11 mg/dL (7-18); eGFR NON AFRICAN AMERICAN > 90 mL/min (90-120)
[2020-01-20 18:45] LABS: ALBUMIN 3.6 g/dL (3.4-5.0); ALKALINE PHOSPHATASE 105 U/L (30-120); ALT (SGPT) 29 U/L (10-68); AMYLASE - SERUM 65 U/L (25-115); BILIRUBIN NEGATIVE (NEGATIVE); KETONE NEGATIVE (NEGATIVE); LIPASE 179 U/L (73-393); NITRITE NEGATIVE (NEGATIVE); PROTEIN - SERUM 7.4 g/dL (6.4-8.2); UROBILINOGEN NORMAL mg/dL (< 2)
[2020-01-20 18:46] LABS: BACTERIA FEW HPF (NONE SEEN); EPITHELIAL CELLS NSEEN /hpf (0-5); WHITE CELLS - URINE NSEEN HPF (0-4)
[2020-01-20 18:48] LABS: TROPONIN-I < 0.017 ng/mL (0.000-0.060)
== END 2020-01-20 19:28 | disposition home or self-care (01) ==
LOC: D.ER 17:13
PROVIDERS: Family Medicine
DX: R10.11 Right upper quadrant pain (principal); K21.9 Gastro-esophageal reflux disease without esophagitis

== ENCOUNTER 2020-01-27 05:59 | Outpatient (CLI) | payer OTHER ==
[~2020-01-27] VITALS: Ht 154.9 cm; Wt 75.0 kg
[2020-01-27 06:17] LABS: HEMATOCRIT 38.7 % (36.0-48.0); HEMOGLOBIN 13.1 g/dL (12-16); MCH 30.8 pg (26.0-34.0); MCHC 33.9 g/dL (31.0-37.0); MCV 90.8 fL (80.0-100.0); MEAN PLATELET VOLUME 9.1 fL (7.4-10.4); RBC 4.26 10x6/uL (4.00-5.40); RDW 13.8 % (11.5-14.5); WBC 7.6 10x3/uL (4.8-10.8)
[2020-01-27 07:27] VITALS: Ht 154.9 cm; Wt 75.0 kg
--- NOTE | 2020-01-27 08:56 | NUR ---
[id number] BEDSICE ESOPHAGEAL MANOMETRY TEST @ THIS TIME
--- NOTE | 2020-01-27 11:17 | NUR ---
IV D/C'D WITH CANNULA INTACT, PRESSURE HELD AND DRSG PLACED. DISCHARGE INSTRUCTIONS GIVEN AND PT VERBALIZE AN UNDERSTANDING. DISCHARGED IN STABLE CONDITION AND WITHOUT COMPLAINT
--- NOTE | 2020-01-27 13:46 | OP ---
PATIENT NAME: ODETTE ARANA MEDICAL RECORD: [id number] :[birth year] LOCATION:D.OPS ADMISSION DATE: SURGEON: JAZMIN PATE MD DATE OF OPERATION: 01/27/2020 PREOPERATIVE DIAGNOSES: 1. Gastroesophageal reflux disease. 2. Hiatal hernia. 3. Right upper quadrant abdominal pain. POSTOPERATIVE DIAGNOSES: 1. Gastroesophageal reflux disease. 2. Hiatal hernia. 3. Right upper quadrant abdominal pain. PROCEDURE: EGD with biopsy and placement of a manometry catheter. SURGEON: Jazmin Pate MD REPORT OF PROCEDURE: An Olympus endoscope was advanced through the mouth and esophagus. There was a little tortuosity to the distal esophagus, but this we passed through the GE junction. We entered the hiatal hernia. We were able to pass through the hiatal hernia and out through the pylorus into the duodenum. There was some mild inflammation to the duodenum, but no signs of any ulcerations or masses. As we pulled back, we could see some mild gastritis present in the distal stomach near the pylorus. A random biopsy was performed of this tissue. A retroflexed view showed that the patient did have a hiatal hernia. As we measured this out, it was approximately 4 cm in length. The tissue in the hiatal hernia appeared to be normal with no signs of any ulcerations. There were no ulcerations or lesions noted throughout the stomach. The hiatal hernia started at 38 cm from the teeth, and the GE junction rested at about 34 cm from the teeth. The distal esophagus had no signs of any inflammatory changes or ulcerations. A random biopsy was performed from the GE junction. At this point, the insufflation was removed and the scope was slowly taken out with observation of the esophagus. A manometry catheter was then inserted into the right naris. After this was inserted, we replaced the gastrostomy tube and can see that the manometry catheter was passed the hiatal hernia in the body of the stomach. COMPLICATIONS: None. CONDITION: Stable. ANESTHESIA: TIVA. BLOOD LOSS: Minimal. TRANSINT:[id number] Voice Confirmation ID: [id number] DOCUMENT ID: [id number] OPERATIVE REPORT [id number] ODETTE ARANA JAZMIN PATE MD at 1346 CC: DAMARIS TANNER DO [id number] DICTATION DATE: 01/27/20817 SEO EXECUTIVE: 01/27/20 0939 DEP CLI 01/27/20 [id number] [place] [address]
== END 2020-01-27 09:25 ==
LOC: D.OPS 05:59
PROVIDERS: Anesthesiology; ATTEND Surgery
DX: K21.9 Gastro-esophageal reflux disease without esophagitis (principal); K44.9 Diaphragmatic hernia without obstruction or gangrene; R19.7 Diarrhea, unspecified; R10.9 Unspecified abdominal pain; R11.2 Nausea with vomiting, unspecified; I25.10 Atherosclerotic heart disease of native coronary artery without angina pectoris

== ENCOUNTER → 2020-02-07 07:28 | Outpatient (CLI) | payer OTHER ==
[2020-01-27 07:27] VITALS: BMI 31.2
== END | disposition home or self-care (01) ==
LOC: D.NM 07:28
PROVIDERS: ATTEND Surgery
DX: R10.9 Unspecified abdominal pain (principal)

== ENCOUNTER 2020-06-18 07:58 | Emergency (ER) | payer OTHER ==
[~2020-06-18] VITALS: Ht 154.9 cm; Wt 72.7 kg
[~2020-06-18 07:58] MED LIST changes: +ACETAMINOPHEN500 M1 PO; +BENTYL 20 MG TA20 MG PO; +HYDROCODON-ACE1 EA10 PO
[2020-06-18 08:02] VITALS: Ht 154.9 cm; Wt 72.7 kg
[2020-06-18 08:28] LABS: BASOPHILS 0.4 % (0-2); EOSINOPHILS 0.7 % (0-7); HEMATOCRIT 40.8 % (36.0-48.0); IMMATURE GRANULOCYTES 0.1 % (0-5); LYMPHOCYTE ABS# 2.54 10x3/uL (1.18-3.74); LYMPHOCYTES 29.8 % (15-50); MCH 30.7 pg (26.0-34.0); MCHC 34.3 g/dL (31.0-37.0); MCV 89.5 fL (80.0-100.0); MEAN PLATELET VOLUME 9.4 fL (7.4-10.4); MONOCYTES 5.2 % (2-11); NEUTROPHIL ABS# 5.43 10x3/uL (1.56-6.13); NEUTROPHILS 63.8 % (40-80); PLATELET COUNT 412 10x3/uL (130-400); RBC 4.56 10x6/uL (4.00-5.40); RDW 13.5 % (11.5-14.5); WBC 8.5 10x3/uL (4.8-10.8)
[2020-06-18 08:34] LABS: CALC OSMOLALITY 273 mosm/kg (275-300); CALCIUM 8.7 mg/dL (8.5-10.1); CARBON DIOXIDE 31.3 mmol/L (21.0-32.0); CHLORIDE - SERUM 103 mmol/L (98-107); CREATININE - SERUM 0.7 mg/dL (0.6-1.3); GLUCOSE 115 mg/dL (74-106); POTASSIUM - SERUM 3.3 mmol/L (3.5-5.1); SODIUM 137 mmol/L (136-145); UREA NITROGEN 10 mg/dL (7-18); eGFR NON AFRICAN AMERICAN > 90 mL/min (90-120)
[2020-06-18 08:36] LABS: BILIRUBIN NEGATIVE (NEGATIVE); KETONE NEGATIVE (NEGATIVE); NITRITE NEGATIVE (NEGATIVE); UROBILINOGEN NORMAL mg/dL (< 2)
[2020-06-18 08:37] LABS: BACTERIA FEW HPF (NONE SEEN); SQUAMOUS EPITHELIAL 0-5 HPF (0-4); WHITE CELLS - URINE 1 HPF (0-4)
[2020-06-18 08:42] LABS: ALBUMIN 3.8 g/dL (3.4-5.0); ALKALINE PHOSPHATASE 123 U/L (30-120); ALT (SGPT) 92 U/L (10-68); AMYLASE - SERUM 61 U/L (25-115); BILIRUBIN - TOTAL 0.46 mg/dL (0.2-1.3); LIPASE 168 U/L (73-393); PROTEIN - SERUM 7.8 g/dL (6.4-8.2); TROPONIN-I < 0.017 ng/mL (0.000-0.060)
[2020-06-18] MEDS ORDERED: CYCLOBENZAPRINE10 MG PO (09:25)
[2020-06-18] MEDS ORDERED: FLORASTOR250 MG PO (09:25)
[2020-06-18] MEDS ORDERED: IBUPROFEN800 MG PO (09:25)
[2020-06-18 09:50] VITALS: BP 125/78
[2020-06-20 13:13] LABS: HEPATITIS C ANTIBODY <0.1 S/CO RAT (0.0-0.9)
== END 2020-06-18 09:43 | disposition home or self-care (01) ==
LOC: D.ER 07:58
PROVIDERS: Family Medicine
DX: R10.9 Unspecified abdominal pain (principal); M54.9 Dorsalgia, unspecified; R31.9 Hematuria, unspecified; M79.10 Myalgia, unspecified site; E87.6 Hypokalemia; R79.89 Other specified abnormal findings of blood chemistry

== ENCOUNTER 2020-07-07 16:47 | Emergency (ER) | payer OTHER ==
[~2020-07-07] VITALS: Ht 154.9 cm; Wt 75.9 kg
[~2020-07-07 16:47] MED LIST changes: +CYCLOBENZAPRINE10 MG PO; +IBUPROFEN800 MG PO
[2020-07-07 17:29] VITALS: Ht 154.9 cm; Wt 75.9 kg
[2020-07-07 17:51] LABS: BASOPHILS 0.3 % (0-2); HEMATOCRIT 38.5 % (36.0-48.0); HEMOGLOBIN 13.2 g/dL (12-16); IMMATURE GRANULOCYTES 0.2 % (0-5); LYMPHOCYTE ABS# 4.15 10x3/uL (1.18-3.74); LYMPHOCYTES 42.3 % (15-50); MCH 30.8 pg (26.0-34.0); MCHC 34.3 g/dL (31.0-37.0); MCV 89.7 fL (80.0-100.0); MEAN PLATELET VOLUME 9.3 fL (7.4-10.4); MONOCYTES 9.3 % (2-11); NEUTROPHILS 46.9 % (40-80); PLATELET COUNT 424 10x3/uL (130-400); RBC 4.29 10x6/uL (4.00-5.40); RDW 13.2 % (11.5-14.5); WBC 9.8 10x3/uL (4.8-10.8)
[2020-07-07 18:01] LABS: CALC OSMOLALITY 280 mosm/kg (275-300); CALCIUM 8.7 mg/dL (8.5-10.1); CARBON DIOXIDE 29.4 mmol/L (21.0-32.0); CHLORIDE - SERUM 106 mmol/L (98-107); CREATININE - SERUM 0.8 mg/dL (0.6-1.3); GLUCOSE 79 mg/dL (74-106); POTASSIUM - SERUM 3.2 mmol/L (3.5-5.1); SODIUM 141 mmol/L (136-145); UREA NITROGEN 14 mg/dL (7-18); eGFR NON AFRICAN AMERICAN 79 mL/min (90-120)
[2020-07-07 18:07] LABS: ALBUMIN 3.4 g/dL (3.4-5.0); ALKALINE PHOSPHATASE 103 U/L (30-120); ALT (SGPT) 32 U/L (10-68); AMYLASE - SERUM 57 U/L (25-115); BILIRUBIN - TOTAL 0.25 mg/dL (0.2-1.3); LIPASE 158 U/L (73-393); PROTEIN - SERUM 7.3 g/dL (6.4-8.2)
[2020-07-07] MEDS ORDERED: ZOFRAN ODT4 MG/UDTAB PO (23:40)
[2020-07-07] MEDS ORDERED: LOMOTIL 2.5-0.1 EAC1 PO (23:40)
[2020-07-08 00:11] VITALS: BP 111/62
== END 2020-07-08 00:07 | disposition home or self-care (01) ==
LOC: D.ER 16:47
PROVIDERS: Emergency Medicine
DX: R10.10 Upper abdominal pain, unspecified (principal); G89.29 Other chronic pain

== ENCOUNTER 2020-07-18 07:38 | Observation (INO) | payer OTHER ==
[2020-07-17 13:49] LABS: BASOPHILS 0.4 % (0-2); EOSINOPHILS 0.6 % (0-7); HEMATOCRIT 42.4 % (36.0-48.0); HEMOGLOBIN 14.5 g/dL (12-16); IMMATURE GRANULOCYTES 0.1 % (0-5); LYMPHOCYTE ABS# 4.54 10x3/uL (1.18-3.74); LYMPHOCYTES 43.7 % (15-50); MCH 30.7 pg (26.0-34.0); MCHC 34.2 g/dL (31.0-37.0); MCV 89.8 fL (80.0-100.0); MEAN PLATELET VOLUME 9.3 fL (7.4-10.4); MONOCYTES 5.8 % (2-11); NEUTROPHIL ABS# 5.15 10x3/uL (1.56-6.13); NEUTROPHILS 49.4 % (40-80); PLATELET COUNT 410 10x3/uL (130-400); RBC 4.72 10x6/uL (4.00-5.40); RDW 13.1 % (11.5-14.5); WBC 10.4 10x3/uL (4.8-10.8)
[2020-07-17 13:50] LABS: CALC OSMOLALITY 278 mosm/kg (275-300); CALCIUM 9.4 mg/dL (8.5-10.1); CARBON DIOXIDE 27.8 mmol/L (21.0-32.0); CHLORIDE - SERUM 104 mmol/L (98-107); CREATININE - SERUM 0.6 mg/dL (0.6-1.3); GLUCOSE 90 mg/dL (74-106); SODIUM 139 mmol/L (136-145); UREA NITROGEN 14 mg/dL (7-18); eGFR NON AFRICAN AMERICAN > 90 mL/min (90-120)
[~2020-07-18] VITALS: Ht 154.9 cm; Wt 75.0 kg
[~2020-07-18 07:38] MED LIST changes: +LOMOTIL 2.5-0.1 EAC1 PO
[2020-07-18] MEDS ORDERED: VALIUM10 MG PO (09:11)
[2020-07-18 09:34] VITALS: BP 107/73; BMI 31.2
--- NOTE | 2020-07-18 13:46 | NUR ---
CARE TRANSFEERRED TO AGUSTIN DUTTA RN
--- NOTE | 2020-07-18 14:00 | NUR ---
PT ARRIVED TO FLOOR VIA BED FROM OR, PT SEDATED, AROUSES TO VOICE, ANSWERS QUESTIONS, YELLS OUT "OUCH" EVEN AFTER PAIN MEDICATIONS FROM PACU AND MED-SURG, AT BEDSIDE
[2020-07-18] MEDS ORDERED: LOMOTIL 2.5-0.1 EAC1 PO (15:31)
[2020-07-18] MEDS ORDERED: PHENAZOPYRIDIN100 MG PO (15:31)
[2020-07-18] MEDS ORDERED: CYCLOBENZAPRINE10 MG PO (15:32)
[2020-07-18 16:46] VITALS: BP 124/74; Ht 154.9 cm; Wt 75.0 kg
[2020-07-18 17:28] VITALS: BP 119/70
[2020-07-18 20:00] VITALS: BP 121/75
--- NOTE | 2020-07-18 21:00 | NUR ---
PT SITTING UP IN BED RESTING WITHOUT DISTRESS, STATES PAIN TO SHOULDER AREA AND ABD. EDUCATED PT ON GAS PAIN AND IMPORTANCE OF WALKING TO HELP WITH GAS PAIN, PT VERBALIZED UNDERSTANDING AND STATES SHE WILL ATTEMPT TO WALK IN [place] IN A LITTLE WHILE. DID AMBULATE TO BATHROOM AND VOIDED. USING DILAUDID DOOR ASSEMBLER FOR PAIN. SITTING AT BEDSIDE. PROVIDED PT WITH ICE PACKS. DENIES OTHER NEEDS. CL IN REACH
[2020-07-19] VITALS: BP 117/76
[2020-07-19 04:00] VITALS: BP 118/62
[2020-07-19 06:51] LABS: BASOPHILS 0.1 % (0-2); EOSINOPHILS 0.1 % (0-7); HEMATOCRIT 34.3 % (36.0-48.0); HEMOGLOBIN 11.6 g/dL (12-16); IMMATURE GRANULOCYTES 0.2 % (0-5); LYMPHOCYTE ABS# 2.94 10x3/uL (1.18-3.74); LYMPHOCYTES 22.9 % (15-50); MCH 30.2 pg (26.0-34.0); MCHC 33.8 g/dL (31.0-37.0); MCV 89.3 fL (80.0-100.0); MEAN PLATELET VOLUME 9.5 fL (7.4-10.4); MONOCYTES 12.3 % (2-11); NEUTROPHIL ABS# 8.29 10x3/uL (1.56-6.13); NEUTROPHILS 64.4 % (40-80); PLATELET COUNT 352 10x3/uL (130-400); RBC 3.84 10x6/uL (4.00-5.40); RDW 13.3 % (11.5-14.5); WBC 12.9 10x3/uL (4.8-10.8)
[2020-07-19 07:15] LABS: CALC OSMOLALITY 272 mosm/kg (275-300); CARBON DIOXIDE 23.9 mmol/L (21.0-32.0); CHLORIDE - SERUM 105 mmol/L (98-107); CREATININE - SERUM 0.6 mg/dL (0.6-1.3); GLUCOSE 97 mg/dL (74-106); POTASSIUM - SERUM 3.7 mmol/L (3.5-5.1); SODIUM 137 mmol/L (136-145); eGFR NON AFRICAN AMERICAN > 90 mL/min (90-120)
[2020-07-19 07:17] LABS: UREA NITROGEN 10 mg/dL (7-18)
[2020-07-19 08:38] VITALS: BP 121/77
--- NOTE | 2020-07-19 08:53 | NUR ---
RECIEVED BEDSIDE REPORT. WENT TO SCAN AT 0821. BACK TO ROOM. GAVE ICE PACK AND REHOOKED IV BACK UP. FREE FROM SIGNS OF DISTRESS. BED LOW POSITION, CALL LIGHT IN REACH. WILL CONTINUE TO MONTIOR.
[2020-07-19] MEDS ORDERED: HYDROCODON-ACE1 EA10 PO (13:19)
[2020-07-19] MEDS ORDERED: REGLAN10 MG PO (13:19)
[2020-07-19 13:20] VITALS: BP 117/71
--- NOTE | 2020-07-19 14:12 | NUR ---
PT IN BED. DENIES NEEDS AT THIS TIME. WILL CONTINUE TO MONITOR.
--- NOTE | 2020-07-19 14:26 | NUR ---
DISCHARGE TEACHING COMPLETE. NO FURTHER QUESTIONS. IV CATH REMOVED, CATH TIP INTACT. BELONGINGS GATHERED. WAITING ON TRANSPORT TO ARRIVE.
--- NOTE | 2020-07-19 15:00 | NUR ---
left unit via wheelchair to home.
--- NOTE | 2020-07-20 14:09 | OP ---
PATIENT NAME: ODETTE ARANA MEDICAL RECORD: [id number] :[birth year] LOCATION:D.MS [id number] ADMISSION DATE:07/18/20 SURGEON: FADI PATE MD DATE OF OPERATION: 07/18/2020 PREOPERATIVE DIAGNOSES: 1. GERD. 2. Paraesophageal hernia. 3. Right upper quadrant abdominal pain. 4. Diarrhea. 5. Anxiety. POSTOPERATIVE DIAGNOSES: 1. GERD. 2. Paraesophageal hernia. 3. Right upper quadrant abdominal pain. 4. Diarrhea. 5. Anxiety. PROCEDURE: 1. Laparoscopic John with paraesophageal hernia repair. 2. EGD with biopsy. 3. Laparoscopic lysis of adhesions. SURGEON: Fadi Pate MD DESCRIPTION OF PROCEDURE: The patient's abdomen was prepped and draped in sterile fashion. A Veress needle was inserted in the left upper quadrant and the abdomen was insufflated. An 11-mm Visiport trocar was inserted in the midline just above the umbilicus. There were some adhesions present to the anterior abdominal wall, but care was taken to not injure any bowel. I could see the Veress needle and this was removed. There was no sign of any injury to bowel or surrounding structures and an 11-mm trocar was placed in the left subcostal region and a 5-mm trocar was placed in the left lateral abdomen. With these trocars in place, we were able to take down the adhesions from the midline including the preperitoneal fat pad, which was densely adhesed to the anterior abdominal wall. The adhesions were mainly of fat and omentum to the anterior abdominal wall, but there was some small bowel that was adherent to the anterior midline abdomen near the umbilicus. This was all taken down with sharp dissection or with Harmonic scalpel. The patient had a normal-appearing liver with no signs of any cirrhotic changes. There was a fatty adhesion to the area of the gallbladder fossa from previous cholecystectomy. There were no signs of any other masses or lesions in the right upper quadrant or the epigastric region. 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 These were taken down using Harmonic scalpel. We then placed a 5-mm trocar in the epigastrium and another in the right lateral subcostal region. Liver retractor was inserted and the left lobe of the liver was elevated after we took down the adhesions of the omentum off of the inferior and lateral aspect of the left liver. The lesser omentum was taken down using Harmonic scalpel all the way up to the right side of the right cora. The patient had a large paraesophageal hernia with the upper half of the stomach extending into the chest cavity. We scored the peritoneum on the right side and began taking down the hernia sac. We continued this as far into the thoracic cavity as possible and up anteriorly and posteriorly around the esophageal hiatus. We then OPERATIVE REPORT [id number] ODETTE ARANA approached the greater curvature of the stomach and took down the short gastrics using Harmonic scalpel on the upper third of the stomach. This dissection was continued to the left side of the right cora. We scored the peritoneum again and completed our dissection of the hernia sac out of the chest cavity. At this point, the esophagus and the stomach freely rested in the abdominal cavity with about 2 cm at least of the esophagus hanging out through the esophageal hiatus without any tension. The esophageal fat pad and hiatal hernia sac were then removed from the anterior aspect of the esophagus using a Harmonic scalpel. The vagus nerves were visualized and protected through this portion of the procedure. We then closed the esophageal hiatus posteriorly using interrupted 0 Polydeks times 3. This appeared to close the tissues appropriately around the esophagus with no tension. We then performed an EGD. The Olympus endoscope was advanced through the mouth and the esophagus, we easily passed through the GE junction and out through the pylorus into the second portion of the duodenum. There were no masses, lesions, or ulcerations visualized throughout the proximal duodenum or throughout the stomach. A random biopsy was taken from the antrum of the stomach for H. pylori. A retroflex view showed no sign of a hiatal hernia and the tissues all appeared to be intact with no ulcerations or lesions in the fundus of the stomach. We then removed the insufflation, but left the scope in place. The fundus of the stomach was then pulled around the distal esophagus for 360-degree John wrap. This was performed with interrupted 0 Polydeks times 3 with the top and the bottom suture incorporating a bite of the esophagus. At this point, the endoscope was removed. The patient's abdomen was irrigated out with normal saline and care was taken to assure there is no sign of any active bleeding. At this point, the ports and insufflation were then removed. The liver retractor had been removed as well. The 11-mm trocar site fascia had been closed with a 0 Vicryl using a Bartolome-Monty suture passer device. The skin incisions were infused with a total of 10 mL of 0.25% Marcaine with epinephrine and then closed with subcutaneous 5-0 Monocryl. COMPLICATIONS: None. CONDITION: Stable. ANESTHESIA: General endotracheal and local. BLOOD LOSS: Minimal. TRANSINT:[id number] Voice Confirmation ID: [id number] DOCUMENT ID: [id number] FADI PATE MD at 1409 CC: DAMARIS TANNER DO and CHICHO DENIS DO [id number] DICTATION DATE: 07/18/20 1305 INDEPENDENT INSURANCE ADJUSTER: 07/18/202053 DIS IN 07/19/20 [id number] [place] [address]
== END 2020-07-19 15:00 | disposition home or self-care (01) ==
LOC: D.OPS 07:38 → D.SDCHOLD 12:51 → D.MS 12:51 → OBSVTIME 12:51 → D.MS 14:09
PROVIDERS: ADMIT Surgery; ATTEND Surgery
DX: K21.9 Gastro-esophageal reflux disease without esophagitis (principal); R10.11 Right upper quadrant pain; R19.7 Diarrhea, unspecified; F41.9 Anxiety disorder, unspecified

== ENCOUNTER 2020-07-23 08:29 | Emergency (ER) | payer OTHER ==
[~2020-07-23] VITALS: Ht 154.9 cm; Wt 72.7 kg
[~2020-07-23 08:29] MED LIST changes: +PHENAZOPYRIDIN100 MG PO; +REGLAN10 MG PO; +VALIUM10 MG PO
[2020-07-23 08:32] VITALS: BP 121/83; Ht 154.9 cm; Wt 72.7 kg
[2020-07-23 09:03] LABS: CALC OSMOLALITY 273 mosm/kg (275-300); CALCIUM 8.9 mg/dL (8.5-10.1); CARBON DIOXIDE 26.7 mmol/L (21.0-32.0); CHLORIDE - SERUM 101 mmol/L (98-107); CREATININE - SERUM 0.6 mg/dL (0.6-1.3); GLUCOSE 99 mg/dL (74-106); SODIUM 138 mmol/L (136-145); UREA NITROGEN 7 mg/dL (7-18); eGFR NON AFRICAN AMERICAN > 90 mL/min (90-120)
[2020-07-23 09:09] LABS: BASOPHILS 0.2 % (0-2); EOSINOPHILS 1.4 % (0-7); HEMATOCRIT 35.7 % (36.0-48.0); HEMOGLOBIN 12.3 g/dL (12-16); IMMATURE GRANULOCYTES 0.2 % (0-5); LYMPHOCYTES 27.4 % (15-50); MCH 30.8 pg (26.0-34.0); MCHC 34.5 g/dL (31.0-37.0); MCV 89.5 fL (80.0-100.0); MEAN PLATELET VOLUME 9.7 fL (7.4-10.4); NEUTROPHIL ABS# 7.57 10x3/uL (1.56-6.13); NEUTROPHILS 62.8 % (40-80); RBC 3.99 10x6/uL (4.00-5.40); RDW 13.1 % (11.5-14.5)
[2020-07-23 09:10] LABS: ALBUMIN 3.5 g/dL (3.4-5.0); ALKALINE PHOSPHATASE 164 U/L (30-120); ALT (SGPT) 114 U/L (10-68); PROTEIN - SERUM 7.8 g/dL (6.4-8.2)
[2020-07-23 09:12] LABS: PLATELET COUNT 439 10x3/uL (130-400)
[2020-07-23 11:12] LABS: AMYLASE - SERUM 42 U/L (25-115); LIPASE 75 U/L (73-393)
[2020-07-23] MEDS ORDERED: IBUPROFEN800 MG PO (11:22)
[2020-07-23] MEDS ORDERED: CYCLOBENZAPRINE10 MG PO (11:22)
[2020-07-23] MEDS ORDERED: CYCLOBENZAPRINE5 MG PO (19:26)
== END 2020-07-23 11:43 | disposition home or self-care (01) ==
LOC: D.ER 08:29
PROVIDERS: Family Medicine
DX: R10.9 Unspecified abdominal pain (principal); G89.29 Other chronic pain; D72.829 Elevated white blood cell count, unspecified; R91.1 Solitary pulmonary nodule; G89.18 Other acute postprocedural pain

== ENCOUNTER 2020-07-23 18:06 | Emergency (ER) | payer OTHER ==
[~2020-07-23] VITALS: Ht 154.9 cm; Wt 72.7 kg
[2020-07-23 18:14] VITALS: Ht 154.9 cm; Wt 72.7 kg
[2020-07-23 18:27] LABS: BASOPHILS 0.2 % (0-2); EOSINOPHILS 2.3 % (0-7); HEMATOCRIT 36.1 % (36.0-48.0); HEMOGLOBIN 12.2 g/dL (12-16); IMMATURE GRANULOCYTES 0.3 % (0-5); LYMPHOCYTE ABS# 4.62 10x3/uL (1.18-3.74); MCH 30.6 pg (26.0-34.0); MCHC 33.8 g/dL (31.0-37.0); MCV 90.5 fL (80.0-100.0); MEAN PLATELET VOLUME 9.5 fL (7.4-10.4); MONOCYTES 9.8 % (2-11); NEUTROPHIL ABS# 6.92 10x3/uL (1.56-6.13); NEUTROPHILS 52.4 % (40-80); PLATELET COUNT 414 10x3/uL (130-400); RBC 3.99 10x6/uL (4.00-5.40); RDW 13.2 % (11.5-14.5); WBC 13.2 10x3/uL (4.8-10.8)
[2020-07-23 18:35] LABS: CALCIUM 8.7 mg/dL (8.5-10.1); CARBON DIOXIDE 25.6 mmol/L (21.0-32.0); CHLORIDE - SERUM 102 mmol/L (98-107); GLUCOSE 127 mg/dL (74-106); POTASSIUM - SERUM 3.9 mmol/L (3.5-5.1); SODIUM 137 mmol/L (136-145); eGFR NON AFRICAN AMERICAN 79 mL/min (90-120)
[2020-07-23 18:36] LABS: APTT 27.3 SECONDS (22.8-39.4); INR 1.02 (0.85-1.17); PROTIME 12.4 SECONDS (11.6-15.0)
[2020-07-23 18:37] LABS: CALC OSMOLALITY 274 mosm/kg (275-300); CREATININE - SERUM 0.8 mg/dL (0.6-1.3); UREA NITROGEN 9 mg/dL (7-18)
[2020-07-23 18:41] LABS: ALBUMIN 3.3 g/dL (3.4-5.0); ALKALINE PHOSPHATASE 165 U/L (30-120); ALT (SGPT) 108 U/L (10-68); BILIRUBIN - TOTAL 0.57 mg/dL (0.2-1.3); PROTEIN - SERUM 7.5 g/dL (6.4-8.2)
[2020-07-23] MEDS ORDERED: CYCLOBENZAPRINE5 MG PO (19:26)
[2020-07-23 19:52] VITALS: BP 133/84
== END 2020-07-23 19:52 | disposition home or self-care (01) ==
LOC: D.ER 18:06
PROVIDERS: Family Medicine
DX: K64.9 Unspecified hemorrhoids (principal)

== ENCOUNTER → 2020-09-05 11:44 | Outpatient (CLI) | payer OTHER ==
[2020-07-23 18:14] VITALS: BMI 30.3
[~2020-09-05 11:44] MED LIST changes: +CYCLOBENZAPRINE5 MG PO
== END | disposition home or self-care (01) ==
LOC: D.NM 11:44
PROVIDERS: ATTEND Surgery
DX: R10.9 Unspecified abdominal pain (principal); R14.0 Abdominal distension (gaseous)